=== PATIENT | female | born 1960 | race African-American/Black ===

== ENCOUNTER → 2018-06-18 | Outpatient (CLI) | payer BC, OTHER ==
[~2018-06-18] MED LIST: AUGMENTIN 875-1 EACH PO; COLACE100 MG PO; ENOXAPARIN80 MG/0.1 SUBQ; GABAPENTIN 100100 MG PO; HYDROCODON-ACE1 EAC7 PO; IPRAT-ALBUT 0.5-3 ML INH; LIDOPATCH1 EACH TRANSDERM; LIORESAL 10 MG10 MG PO; LOSARTAN-HCTZ1 EAC1 PO; MIRALAX17 GM PO; MS CONTIN15 MG PO; NAPROSYN500 MG PO; NORCO 5-325 TA1 EACH PO; NORVASC5 MG PO; TRAMADOL 50 MG50 MG PO; ZANTAC 150MG T150 MG PO
== END ==
LOC: RAD 12:38
DX: R91.8 Other nonspecific abnormal finding of lung field (principal)

== ENCOUNTER 2018-08-14 18:01 | Emergency (ER) | payer BC, OTHER ==
[~2018-08-14] VITALS: Ht 160 cm; Wt 65.3 kg
[2018-08-14 19:16] LABS: HEMATOCRIT 39.2 % (37.0-47.0); HEMOGLOBIN 13.8 gm/dL (12.0-15.0); MCH 33.3 pg (26.0-34.0); MCHC 35.3 g/dL (28.0-37.0); MCV 94.2 fL (80.0-100.0); PLATELET COUNT 201 thou/uL (150-400); RBC 4.16 mil/uL (4.20-5.00); RDW 27.9 % (10.5-14.5); WBC 10.2 thou/uL (4.0-11.0)
[2018-08-14 19:23] LABS: CALCIUM 9.9 mg/dL (8.5-10.1); CREATININE 0.8 mg/dL (0.6-1.0)
[2018-08-14 19:26] LABS: POTASSIUM 2.9 mmol/L (3.5-5.1)
[2018-08-14 19:29] LABS: ALBUMIN 3.6 g/dL (3.4-5.0); TOTAL BILIRUBIN 0.4 mg/dL (<0.1-1.0); TOTAL PROTEIN 7.8 g/dL (6.4-8.2)
[2018-08-14] MEDS ORDERED: ZOFRAN 4 MG ORAL4 MG PO (19:38)
[2018-08-14] MEDS ORDERED: LOMOTIL TABLET1 EACH PO (19:38)
[2018-08-14 19:42] LABS: ABSOLUTE NEUTROPHILS 6.3 thou/uL (1.4-8.2); ANISOCYTOSIS 3+; LARGE PLATELETS OCCASIONAL
[2018-08-14 19:43] LABS: POLYCHROMASIA OCCASIONAL
[2018-08-14 20:15] VITALS: BP 127/68
== END 2018-08-14 20:18 | disposition home or self-care (01) ==
LOC: ER 18:01
PROVIDERS: Emergency Medicine
DX: B34.9 Viral infection, unspecified (principal); I10 Essential (primary) hypertension; E11.9 Type 2 diabetes mellitus without complications; Z86.711 Personal history of pulmonary embolism; Z85.118 Personal history of other malignant neoplasm of bronchus and lung; Z90.711 Acquired absence of uterus with remaining cervical stump